=== PATIENT | male | born 1970 | race Caucasian/White ===

== ENCOUNTER 2019-07-01 12:44 | Emergency (ER) | payer SELFPAY ==
[~2019-07-01] VITALS: Ht 165.1 cm; Wt 69.0 kg
[2019-07-01] MEDS ORDERED: BACITRACIN ZINC OINT UDPKT TOP ONE (14:30)
[2019-07-01] MEDS ORDERED: HYDROCODONE/ACETAMINOPHEN 5/325MG TABLET PO ONE (14:30)
[2019-07-01] MEDS ORDERED: LIDOCAINE HCL/PF 1% 10 MG/ML 5ML VIAL IJ ONE (14:30)
[2019-07-01 15:20] VITALS: BP 120/82
[2019-07-01] MEDS ORDERED: BACITRACIN 15GM TUBE TOP NR (15:45)
== END 2019-07-01 15:46 | disposition home or self-care (01) ==
LOC: ER 12:44
DX: S61.511A Laceration without foreign body of right wrist, initial encounter (principal); W20.8XXA Other cause of strike by thrown, projected or falling object, initial encounter; Y93.89 Activity, other specified; Y92.89 Other specified places as the place of occurrence of the external cause
CPT/HCPCS: 12002; 73110; 99284; J3490

== ENCOUNTER 2019-07-03 10:31 | Emergency (ER) | payer SELFPAY ==
[~2019-07-03] VITALS: Ht 165.1 cm; Wt 70.0 kg
[2019-07-03 11:16] VITALS: BP 118/74
== END 2019-07-03 11:44 | disposition home or self-care (01) ==
LOC: ER 10:31
DX: S61.511D Laceration without foreign body of right wrist, subsequent encounter (principal); X58.XXXD Exposure to other specified factors, subsequent encounter
CPT/HCPCS: 99281

== ENCOUNTER 2019-07-13 08:07 | Emergency (ER) | payer SELFPAY ==
[~2019-07-13] VITALS: Ht 157.5 cm; Wt 68.0 kg
[2019-07-13 08:12] VITALS: BP 123/78
== END 2019-07-13 09:05 | disposition home or self-care (01) ==
LOC: ER 08:07
DX: Z48.02 Encounter for removal of sutures (principal)
CPT/HCPCS: 99281; Z7610